=== PATIENT | female | born 1965 | race Caucasian/White ===

== ENCOUNTER → 2017-01-16 | Outpatient (CLI) | payer BC ==
[~2017-01-16] MED LIST: ALBU1AER9 INH; CYCL10TA6 PO; CYM60 PO; EST1 PO; GAMMUNEX IV; HYDR200T5 PO; KLN5X PO; NAPR1TAB9 PO; ROPI0.5T PO; SYMIN/8045 INH; TRAM-10 PO
--- NOTE | 2017-01-16 16:18 | MAMMOGRAPHY REPORT ---
BILATERAL DIGITAL SCREENING MAMMOGRAM TOMOSYNTHESIS WITH CAD: 01/16/2017 CLINICAL HISTORY: Routine screening. Patient has no complaints. TECHNIQUE: Breast tomosynthesis in addition to standard 2D mammography was performed. Current study was also evaluated with a Computer Aided Detection (CAD) system. COMPARISON: Comparison is made to exams dated: 01/03/2016 mammogram, 07/04/2015 mammogram, 12/07/2014 mammogram, 11/30/2014 mammogram, 11/18/2014 mammogram, and 11/03/2013 mammogram - [facility] enter. BREAST COMPOSITION: There are scattered areas of fibroglandular density in both breasts. FINDINGS: No suspicious masses, calcifications, or areas of architectural distortion are noted in ei ther breast. There has been no significant interval change compared to prior exams. IMPRESSION: ACR BI-RADS CATEGORY 1: NEGATIVE There is no mammographic evidence of malignancy. A 1 year screening mammogram is recommended. The pa tient will receive written notification of the results. Approximately 10% of breast cancers are not detected with mammography. A negative mammographic report should not delay biopsy if a clinically suggestive mass is present. Giovanna Fernandes M.D. /:01/16/2017 15:37:59 [employer] Worker: Maryan MATHUR(Naomi)(Petty)([place]), [facility] letter sent: Normal 1/2 BI-RADS Code: ACR BI-RADS Category 1: Negative
== END | disposition home or self-care (01) ==
LOC: C.MAMM 12:37
PROVIDERS: ATTEND Family Medicine
DX: Z12.31 Encounter for screening mammogram for malignant neoplasm of breast (principal)

== ENCOUNTER 2017-11-03 21:06 | Emergency (ER) | payer BC, OTHER ==
[~2017-11-03] VITALS: Ht 147.3 cm; Wt 64.1 kg
[2017-11-03 21:13] VITALS: TEMP 36.5; Ht 147.3 cm; Wt 64.1 kg
[2017-11-03] MEDS ORDERED: FAMOTIDINE 20MG/102 ML D5W IV STA (21:49)
[2017-11-03] MEDS ORDERED: METHYLPREDNISOLONE 125 MG VIAL IV STA (21:49)
[2017-11-03] MEDS ORDERED: FAMOTIDINE 20MG/5ML IV PUSH IV ONE (21:54)
[2017-11-03 22:00] LABS: BASO % 0.7 %; BASO ABS # 0.05 K/uL (0-0.2); EOS % 6.8 %; EOS ABS # 0.47 K/uL (0-0.5); HEMATOCRIT 40.1 % (37-47); IG# 0.01 K/uL (0.00-0.02); LYMPH % 42.7 %; LYMPH ABS # 2.95 K/uL (1.2-3.4); MEAN CELL VOLUME 95.2 fL (80-100); MEAN CORPUSCULAR HEMOGLOBIN 33.3 pg (25-34); MEAN CORPUSCULAR HGB CONC 34.9 g/dl (32-36); MEAN PLATELET VOLUME 10.8 fL (7.4-10.4); MONO % 6.4 %; MONO ABS # 0.44 K/uL (0.11-0.59); NEUT % 43.3 %; NEUT ABS # 2.99 K/uL (1.4-6.5); PLATELET COUNT 264 K/uL (130-400); RED CELL DISTRIBUTION WIDTH CV 13.3 % (11.5-14.5); RED CELL DISTRIBUTION WIDTH SD 45.9 fL (36.4-46.3); WHITE BLOOD COUNT 6.91 K/uL (4.8-10.8)
[2017-11-03 22:08] LABS: ALBUMIN 3.9 gm/dl (3.4-5.0); CALCIUM 8.9 mg/dl (8.5-10.1); CREATININE 1.16 mg/dl (0.60-1.20); POTASSIUM 3.6 mmol/L (3.5-5.1)
[2017-11-03 22:55] VITALS: BP 138/85; PULSE 90; O2SAT 99
[2017-11-03] MEDS ORDERED: LORAZEPAM 1 MG TAB SL STA (23:08)
[2017-11-03] MEDS ORDERED: METH4PAK PO (23:15)
--- NOTE | 2017-11-03 23:20 | EMERGENCY ROOM VISIT NOTE ---
History First contact with patient: 21:32 Chief Complaint: ALLERGIC REACTION Stated Complaint: ITCH,UPSET STOMACH Nursing Triage Summary: patient states starting last night her hands began to itch and also today . patient states itching then spread to bilateral arms, back, and neck. mentioned areas are redenned. patient states she took four 25mg benadryl tablets prior to arrival. patient unsure what she might have been exposed to. patient taking amoxicillin and is on day 10 for a sinus infection. History of Present Illness The patient is a 52 year old female who presents to the Emergency Room with complaints of generalized itching. The patient reports that she began to feel itching all over her body last night. She states this woke her up at night. She states this has persisted over the past day. The symptoms started on her hands and then spread to her arms, back and neck. She took a total of 5 Benadryl 25 mg tablets throughout the day today without relief. She reports some mild nausea and dryness of her throat at this time as well. The patient does report that she finished a 10 day course of amoxicillin yesterday. 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 She denies any other new medications, lotions, detergents, soaps or other exposures. She denies any history of similar symptoms. She denies vomiting, shortness of breath or difficulty swallowing. Review of Systems A complete 10 point review of systems was reviewed with the patient with pertinent positives and negatives as per history of present illness. All else were negative. Past Medical/Surgical History Medical Problems: (1) Arthritis (2) Immune deficiency disorder Surgical Problems: (1) H/O: hysterectomy (2) Hx of appendectomy (3) Hx of cholecystectomy Family History Cancer Heart disease Hypertension Seizures Social History Smoking Status: Never Smoker Alcohol Use: occasionally Marital Status: Housing Status: lives with family Occupation Status: disabled Current/Historical Medications Scheduled Clonazepam (Clonazepam), 0.5 MG PO DAILY Duloxetine HCl (Duloxetine HCl), 60 MG PO DAILY Estradiol (Estradiol), 1 MG PO DAILY Hydroxychloroquine Sulfate (Plaquenil), 200 MG PO HS Methylprednisolone (Medrol Dosepak), 0 PO DAILY Naproxen (Aleve), 220 MG PO DAILY Ropinirole Hydrochloride (Requip), 0.5 MG PO HS [Gammunex], 1 DOSE IV Q3 WEEKS Scheduled PRN Albuterol Sulfate (Proair Hfa), 2 PUFFS INH QID PRN for SOB/Wheezing Budesonide/Formoterol Fumarate (Symbicort 80/4.5 Inhaler), 2 PUFFS INH BID PRN for Cold Symptoms Cyclobenzaprine Hcl (Flexeril), 10 MG PO TID PRN for Muscle Spasm Tramadol (Ultram), 50-100 MG PO Q6H PRN for Pain Physical Exam Vital Signs Date Time Temp Pulse Resp B/P (MAP) Pulse Ox O2 Delivery O2 Flow Rate FiO2 11/03/17 22:55 90 20 138/85 99 Room Air 11/03/17 21:21 98 Room Air 11/03/17 21:13 36.5 108 20 144/87 100 Room Air Physical Exam VITALS: Vitals are noted on the nurse's note and reviewed by myself. Vital signs stable. GENERAL: This is a 52-year-old female, in no acute distress but mildly anxious appearing, well-developed well-nourished. SKIN: There is evidence of excoriation to the low back, lower abdomen and bilateral lower arms. No urticaria or other rashes noted. EARS: External auditory canals clear, tympanic membranes pearly hall without erythema or effusion bilaterally. EYES: Pupils equal round and reactive to light and accommodation. MOUTH: Mucous membranes moist. Tonsils are not enlarged. Airway patent. NECK: Supple without nuchal rigidity. No lymphadenopathy. HEART: Regular rate and rhythm without murmurs gallops or rubs. LUNGS: Clear to auscultation bilaterally without wheezes, rales or rhonchi. No retractions or accessory muscle use. NEURO: Patient was alert and oriented to person place and time. Medical Decision & Procedures Laboratory Results 11/03/17 21:40 Red Blood Count 4.21, Mean Corpuscular Volume 95.2, Mean Corpuscular Hemoglobin 33.3, Mean Corpuscular Hemoglobin Concent 34.9, Mean Platelet Volume 10.8, Neutrophils (%) (Auto) 43.3, Lymphocytes (%) (Auto) 42.7, Monocytes (%) (Auto) 6.4, Eosinophils (%) (Auto) 6.8, Basophils (%) (Auto) 0.7, Neutrophils # (Auto) 2.99, Lymphocytes # (Auto) 2.95, Monocytes # (Auto) 0.44, Eosinophils # (Auto) 0.47, Basophils # (Auto) 0.05 11/03/17 21:40 Test 11/03/17 21:40 White Blood Count 6.91 K/uL (4.8-10.8) Red Blood Count 4.21 M/uL (4.2-5.4) Hemoglobin 14.0 g/dL (12.0-16.0) Hematocrit 40.1 % (37-47) Mean Corpuscular Volume 95.2 fL (80-100) Mean Corpuscular Hemoglobin 33.3 pg (25-34) Mean Corpuscular Hemoglobin Concent 34.9 g/dl (32-36) Platelet Count 264 K/uL (130-400) Mean Platelet Volume 10.8 fL (7.4-10.4) Neutrophils (%) (Auto) 43.3 % Lymphocytes (%) (Auto) 42.7 % Monocytes (%) (Auto) 6.4 % Eosinophils (%) (Auto) 6.8 % Basophils (%) (Auto) 0.7 % Neutrophils # (Auto) 2.99 K/uL (1.4-6.5) Lymphocytes # (Auto) 2.95 K/uL (1.2-3.4) Monocytes # (Auto) 0.44 K/uL (0.11-0.59) Eosinophils # (Auto) 0.47 K/uL (0-0.5) Basophils # (Auto) 0.05 K/uL (0-0.2) RDW Standard Deviation 45.9 fL (36.4-46.3) RDW Coefficient of Variation 13.3 % (11.5-14.5) Immature Granulocyte % (Auto) 0.1 % Immature Granulocyte # (Auto) 0.01 K/uL (0.00-0.02) Anion Gap 7.0 mmol/L (3-11) Est Creatinine Clear Calc Drug Dose 44.4 ml/min Estimated GFR () 62.3 Estimated GFR (Non- 53.7 BUN/Creatinine Ratio 8.4 (10-20) Calcium Level 8.9 mg/dl (8.5-10.1) Total Bilirubin 0.4 mg/dl (0.2-1) Aspartate Amino Transf (AST/SGOT) 28 U/L (15-37) Alanine Aminotransferase (ALT/SGPT) 30 U/L (12-78) Alkaline Phosphatase 61 U/L (45-117) Total Protein 8.0 gm/dl (6.4-8.2) Albumin 3.9 gm/dl (3.4-5.0) Globulin 4.1 gm/dl (2.5-4.0) Albumin/Globulin Ratio 0.9 (0.9-2) Medications Administered Medications (Trade) Dose Ordered Sig/Jose Route Start Time Stop Time Status Last Admin Dose Admin Methylprednisolone Sodium Succinate (Solu-Medrol IV) 125 mg NOW STAT IV 11/03/17 21:49 11/03/17 21:50 DC 11/03/17 21:55 125 MG Famotidine (Pepcid 20mg/100 ml) 20 mg ONE STAT IV 11/03/17 21:49 11/03/17 21:50 DC 11/03/17 21:49 20 MG Lorazepam (Ativan Tab) 1 mg NOW STAT SL 11/03/17 23:08 11/03/17 23:09 DC 11/03/17 23:17 1 MG Medical Decision Differential diagnosis includes allergic reaction, anaphylaxis, idiopathic urticaria, histamine reaction, among others. The patient was negative as above. She presents with generalized itching. Labs were reviewed and are unremarkable, with no leukocytosis or electrolyte abnormalities. There is no evidence of urticaria. She recently finished a course of amoxicillin, although I am not highly suspicious of an allergic reaction to this as she took it for 10 days without any difficulties. Patient was advised to be cautious with this medication in the future. I suspect this is likely a histamine reaction. She was given Solu-Medrol and Pepcid IV with a small amount of improvement. Treatment plan was discussed with the patient. She will be placed on a Medrol Dosepak and continue Benadryl on a scheduled basis at home. On my final reevaluation, she was very anxious appearing and persistently scratching at her back and legs. I did order 1 mg Ativan to be given sublingually to help with his anxiety and hopefully help her be able to get to sleep tonight. She was advised to follow-up with her PCP within 48 hours and return here with worsening or new/concerning symptoms. She verbalized understanding of my assessment and treatment plan was discharged home in good condition. Medication Reconcilliation Current Medication List: was personally reviewed by me Blood Pressure Screening Patient's blood pressure: Normal blood pressure Impression Primary Impression: Generalized pruritus Departure Information Dispostion Home / Self-Care Condition GOOD Prescriptions Methylprednisolone (MEDROL DOSEPAK) 4 Mg Wayne 0 PO DAILY, #1 PKT Prov: Betty Miranda .FAVIOLA 11/03/17 Referrals Paulino Russo M.D. (PCP) Patient Instructions My [facility] Additional Instructions You have been treated in the Emergency Department for generalized itching. You should take Benadryl (diphenhydramine) 50 mg orally every 6 hours until symptoms have resolved. You have been prescribed a Medrol Dosepak. Take this medication as prescribed. You should take the COMPLETE 6-day course of this medication. This is an anti- inflammatory medicine that will help to minimize your symptoms. As with every Emergency Department visit, you should follow-up with your primary care provider within 48 hours for reevaluation. Return to the Emergency Department if your current symptoms worsen despite treatment course outlined above, or if you develop any of the following symptoms : wheezing, tongue or face swelling, tightness in your throat, shortness of breath, or fainting.
== END 2017-11-03 23:39 | disposition home or self-care (01) ==
LOC: C.EDB 21:07
DX: L29.9 Pruritus, unspecified (principal); D84.9 Immunodeficiency, unspecified; R11.0 Nausea

== ENCOUNTER → 2017-11-18 | Outpatient (CLI) | payer OTHER | END | disposition home or self-care (01) | LOC: C.LABSPEC 17:43 | PROVIDERS: ATTEND Physician Assistant | DX: N94.9 Unspecified condition associated with female genital organs and menstrual cycle (principal) ==

== ENCOUNTER → 2017-12-11 | Outpatient (CLI) | payer OTHER ==
[2017-12-11 15:08] LABS: BLOOD UREA NITROGEN 12 mg/dl (7-18); CALCIUM 8.5 mg/dl (8.5-10.1); CARBON DIOXIDE 28 mmol/L (21-32); CREATININE 1.12 mg/dl (0.60-1.20); GLUCOSE 86 mg/dl (70-99); SODIUM 138 mmol/L (136-145)
== END | disposition home or self-care (01) ==
LOC: C.LAB1850 13:42
PROVIDERS: ATTEND Internal Medicine
DX: M06.4 Inflammatory polyarthropathy (principal); Z79.899 Other long term (current) drug therapy